=== PATIENT | male | born 1970 | race African-American/Black ===

== ENCOUNTER 2022-03-24 07:18 | Outpatient (CLI) | payer OTHER, SELFPAY ==
[2022-03-24 09:48] LABS: Albumin* 4.3 g/dL (3.3-5.0)
[2022-03-24 09:49] LABS: Chloride* 105 mmol/L (96-114); Potassium* 4.2 mmol/L (3.6-5.1); Sodium* 140 mmol/L (135-149)
[2022-03-24 09:51] LABS: Bilirubin Total* 0.9 mg/dL (0.1-1.5); Carbon Dioxide* 27 mmol/L (20-32); Cholesterol* 185 mg/dL (90-199); Creatinine* 1.2 mg/dL (0.5-1.5); Estimated Glomerular Filt Rate 73 ml/min; Total Protein* 7.6 g/dL (6.0-8.3)
[2022-03-24 09:52] LABS: Alanine Aminotransferase* 25 U/L (4-50); Alkaline Phosphatase* 82 U/L (40-150); Aspartate Amino Transferase* 27 U/L (12-35); Blood Urea Nitrogen* 13 mg/dL (7-30); Calcium* 8.9 mg/dL (8.4-10.6); Glucose* 96 mg/dL (60-115); HDL Cholesterol* 66 mg/dL (>=40); LDL Cholesterol Calculated 106 mg/dL (<100); Triglycerides* 65 mg/dL (40-149)
[2022-03-24 10:19] LABS: PSA Screen* 1.38 ng/mL (0.10-4.00)
== END 2022-03-24 07:19 | disposition home or self-care (01) ==
PROVIDERS: PCP Internal Medicine; Visit Provider Internal Medicine
DX: Z12.5 Encounter for screening for malignant neoplasm of prostate (principal); Z13.6 Encounter for screening for cardiovascular disorders
CPT/HCPCS: 80053; 80061; 84153

== ENCOUNTER 2022-05-06 06:06 | Outpatient (CLI) | payer OTHER, SELFPAY | END 2022-05-06 06:07 | disposition home or self-care (01) | PROVIDERS: PCP Internal Medicine; Visit Provider Internal Medicine | DX: Z12.11 Encounter for screening for malignant neoplasm of colon (principal); K21.9 Gastro-esophageal reflux disease without esophagitis | CPT/HCPCS: 43239; 45378; 88305; J2250; J3010 ==

== ENCOUNTER 2023-05-10 07:00 | Outpatient (CLI) | payer OTHER, SELFPAY | END 2023-05-10 07:01 | disposition home or self-care (01) | LOC: NFLDREF 12:04 | PROVIDERS: PCP Internal Medicine; Referring Provider Internal Medicine; Visit Provider Internal Medicine | DX: N40.0 Benign prostatic hyperplasia without lower urinary tract symptoms (principal); Z13.220 Encounter for screening for lipoid disorders; I10 Essential (primary) hypertension; Z12.5 Encounter for screening for malignant neoplasm of prostate | CPT/HCPCS: 80053; 80061; G0103 ==

== ENCOUNTER 2023-05-24 08:44 | Emergency (ER) | payer OTHER, SELFPAY ==
[2023-05-24 08:48] VITALS: BP 145/95; PULSE 72; RESP 16; TEMP 36.1; O2SAT 99; BMI 29.7
--- NOTE | 2023-05-24 09:12 | ED.GENADULT ---
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 He is doses blood pressures been higher. His has been sick with similar illness but he has had diarrhea the last few days, occasional chills, occasional headache and some body aches. He denies specifically any dysuria denies any chest pain or breathing difficulty no shortness of breath with exertion. He has not had any blood in his stool, it has been more watery. He has had some p.o. intake but he has been limited in that due to the the diarrhea and just not much appetite. He does take amlodipine and losartan and tamsulosin. He has had no recent travel. Related Data Home Medications Medication Instructions Recorded Confirmed tamsulosin 0.4 mg capsule 0.4 mg PO QPM 05/24/23 05/24/23 Previous Rx's Medication Instructions Recorded amlodipine 10 mg tablet 10 mg PO QDAY Hypertension #90 tabs 05/16/23 losartan 100 mg tablet 100 mg PO QDAY Hypertension #90 05/16/23 tabs Allergies Allergy/AdvReac Type Severity Reaction Status Date / Time lisinopril Allergy Intermediate swollen Verified 05/16/23 07:48 lips Review of Systems Status of ROS: Reports: 6 or more systems reviewed and unremarkable except as noted in History and below PFSH [facility] Medical History BPH (benign prostatic hyperplasia) ?N40.0 - Benign prostatic hyperplasia without lower urinary tract symptoms (ICD-10) Need for malaria prophylaxis ?Z29.8 - Encounter for other specified prophylactic measures (ICD-10) Social History What is your current living situation?: I presently have a place to live Problems where you live: no known problems In the past 12 months, utilities in danger of being shut off: no In past 12 months, lack of transportation kept you from medical appts, meetings, work, or getting things needed for daily living: no In the past 12 mos, have been you worried that your food would run out before you had money to buy more?: never true In the past 12 mos, the food you bought just didn't last and you didn't have money to buy more?: never true Smoking Status: Never smoker Do you use any of these nicotine containing products: None How often do you have a drink containing alcohol: never How often do you have six or more drinks on one occasion: Never AUDIT-C Alcohol total score: 0 Non-prescribed substance use: denies use How often does anyone, including family, friends and others, physically hurt you: never How often does anyone, including family, friends and others, insult or talk down to you: never How often does anyone, including family, friends and others, threaten you with harm: never How often does anyone, including family, friends and others, scream or curse at you: never Little interest or pleasure in doing things: not at all Feeling down, depressed, or hopeless: not at all service: No Exam Narrative: Exam Narrative: Objective: Vital signs are unremarkable and within normal limits including him being afebrile, the exception is his blood pressure is just minimally elevated 145/95. He is awake and alert no distress, no scleral icterus Throat is clear HEENT shows no facial asymmetry Neck is supple Chest is clear Heart rhythm regular heart murmur Abdomen benign soft no masses no peritonitis Extremities are no edema , neurologic nonfocal upper lower extremities Skin periphery is warm and dry Const: Vital Signs, click to edit/add: Vital Signs - 24 hr 05/24/23 08:48 Temperature 96.9 F L Pulse Rate [Pulse Oximeter] 72 Respiratory Rate 16 Blood Pressure [Ri ght Upper Arm] 145/95 H Pulse Oximetry 99 Oxygen Delivery Me thod Room Air Course Vital Signs Vital signs: Initial Vital Signs Temperature 96.9 F L 05/24/23 08:48 Temperature Source Temporal Artery Scan 05/24/23 08:48 Pulse Rate 72 05/24/23 08:48 Respiratory Rate 16 05/24/23 08:48 Blood Pressure 145/95 H 05/24/23 08:48 Blood Pressure Mean 111 H 05/24/23 08:48 Blood Pressure Position Sitting 05/24/23 08:48 Pulse Oximetry 99 05/24/23 08:48 Oxygen Delivery Method Room Air 05/24/23 08:48 Vital Signs Temperature 96.9 F L 05/24/23 08:48 Pulse Rate 72 05/24/23 08:48 Respiratory Rate 16 05/24/23 08:48 Blood Pressure 145/95 H 05/24/23 08:48 Pulse Oximetry 99 05/24/23 08:48 Oxygen Delivery Method Room Air 05/24/23 08:48 Temperature 96.9 F L 05/24/23 08:48 Pulse Rate 72 05/24/23 08:48 Respiratory Rate 16 05/24/23 08:48 Blood Pressure 145/95 H 05/24/23 08:48 Pulse Oximetry 99 05/24/23 08:48 Oxygen Delivery Method Room Air 05/24/23 08:48 Medications Administered Medications: Discontinued Medications Generic Name Dose Route Start Last Admin Trade Name Santana PRN Reason Stop Dose Admin Acetaminophen 1,000 mg 05/24/23 09:09 05/24/23 09:25 Acetaminophen 500 Mg Tablet PO 05/24/23 09:10 1,000 mg ONCE ONE Administration Sodium Chloride 1,000 mls @ 6,000 mls/hr 05/24/23 09:15 05/24/23 10:07 0.9 % Sodium Chloride 1000 Ml IV 05/24/23 09:24 Infused .Q10M PLACIDO Infusion Ibuprofen 800 mg 05/24/23 09:11 05/24/23 09:25 Ibuprofen 400 Mg Tablet PO 05/24/23 09:12 800 mg ONCE ONE Administration Medical Decision Making [facility] Narrative Medical decision making narrative: 52-year-old male with diarrhea for several days duration, is sick with similar type illness. I think at this point rule out electrolyte abnormality, rule out viral studies, labs, will get an EKG and point of care troponin for completeness. I do not suspect any cardiac issue but I would want make sure this looks normal. I think at this point rehydration is appropriate as well as some Tylenol and ibuprofen for his body aches. Disposition pending findings above. He has had no history of bleeding or clotting problems, no recent travel, does have exposure to similar illness in the household. Suspect influenza or COVID. Will also do stool culture, O&P, C diff . no recent antibiotic use Addendum 10:20 a.m. patient's EKG shows normal sinus rhythm possible mild LVH some artifact present no obvious ischemic changes, the patient troponin point of care as negative. His white blood cell count hemoglobin, electrolytes are all within normal limits. He does have minimal elevation in his AST and ALT. His CRP is just minimally elevated 1.9. Amylase is normal, viral studies are negative. I suspect he has some type of intestinal infection, similar with his at his had a vomiting and diarrhea illness that now she has improved from. I think collecting the stool samples at home would be appropriate as he has not been able to leave those here. Will give him some some Imodium now and he could use it once or twice a day for the next couple of days, eat yogurt, diet as tolerated, perhaps avoid milk products for the next couple of days. Recheck with regular doctor next 48 hours on improved, return to ED any time concerns or questions. Lab Data Labs: Lab Results 05/24/23 05/24/23 Range/Units 09:10 09:25 WBC 4.99 (4.50-11.00) K/uL RBC 5.22 (4.30-5.90) m/uL Hgb 15.2 (13.5-17.5) gm/dL Hct 46.1 (37.0-53.0) % MCV 88 (80-100) fL MCH 29 (26-34) pg MCHC 33 (32-36) gm/dL RDW Coeff of Kaur 12.0 (11.5-15.5) % Plt Count 247 (140-440) K/uL Neut % (Auto) 46.9 (42.0-72.0) % Lymph % (Auto) 37.1 (20-44) % [place] % (Auto) 13.8 H (0.0-11.0) % Eos % (Auto) 1.6 (0.0-7.0) % Baso % (Auto) 0.4 (0.0-3.0) % Neut # (Auto) 2.34 (1.7-7.0) K/uL Lymph # (Auto) 1.85 (0.90-2.90) K/uL [place] # (Auto) 0.70 (0.00-0.90) K/UL Eos # (Auto) 0.08 (0.00-0.50) K/uL Baso # (Auto) 0.02 (0.00-0.30) K/uL Abs Immat Gran (auto) 0.01 (0.00-0.30) K/uL Imm/Tot Granulo (auto) 0.2 % Sodium 138 (135-149) mmol/L Potassium 3.7 (3.6-5.1) mmol/L Chloride 106 (96-114) mmol/L Carbon Dioxide 24 (20-32) mmol/L Anion Gap 8 (7-15) mEq/L BUN 12 (7-30) mg/dL Creatinine 1.3 (0.5-1.5) mg/dL Estimated Creat Clear 72.96 Estimated GFR 66 ml/min Glucose 89 (60-115) mg/dL Lactate 1.0 (0.5-1.9) mmol/L Calcium 9.0 (8.4-10.6) mg/dL Total Bilirubin 0.6 (0.1-1.5) mg/dL Direct Bilirubin 0.2 (0.0-0.5) mg/dL AST 53 H (12-35) U/L ALT 94 H (4-50) U/L Alkaline Phosphatase 101 (40-150) U/L C-Reactive Protein 1.9 H (0.5-1.0) mg/dL NT-Pro-B Natriuret Pep < 20 pg/mL Total Protein 8.0 (6.0-8.3) g/dL Albumin 4.2 (3.3-5.0) g/dL Amylase 60 (18-89) U/L SARS-CoV-2 (PCR) Negative SARS-CoV-2 (Negative) Influenza Type A (PCR) Negative PCR FLU A (Negative) Influenza Type B (PCR) Negative PCR FLU B (Negative) RSV (PCR) Negative PCR RSV (Negative) POC Troponin I 0.01 (0.01-0.04) ng/ml Discharge Plan Discharge Clinical Impression: Diarrhea Patient Disposition: Home w/ Parent or Adult Condition: Improved Additional Instructions: Rest, light activity, home for a couple of days would be recommended, Imodium as needed once or twice a day for diarrhea. This is [id number]. Would also recommend you eat yogurt regularly, avoid milk products for a couple of days. Collect the stool samples in the containers year sent home with and you can bring those back to the hospital for analysis. Recheck with your regular doctor next 2-3 days, return to ED sooner problems concerns or worsening. Activity Level: Light activity Prescriptions: No Action amlodipine 10 mg tablet 10 mg PO QDAY Qty: 90 3RF losartan 100 mg tablet 100 mg PO QDAY Qty: 90 0RF tamsulosin 0.4 mg capsule 0.4 mg PO QPM Follow Up/Referrals: Sree Pryor MD [Primary Care Provider] - Stand Alone Forms: [employer] Info Instructions
[2023-05-24] MEDS: ACETAMINOPHEN 500 MG TABLET 1000 MG PO (09:25)
[2023-05-24] MEDS: 0.9 % SODIUM CHLORIDE 1000 ml 1,000 ML 6000 ML IV (09:25)
[2023-05-24] MEDS: IBUPROFEN 400 MG TABLET 800 MG PO (09:25)
[2023-05-24 09:34] LABS: Basophils Absolute Auto 0.02 K/uL (0.00-0.30); Basophils Percent Auto 0.4 % (0.0-3.0); Eosinophils Absolute Auto 0.08 K/uL (0.00-0.50); Eosinophils Percent Auto 1.6 % (0.0-7.0); Hematocrit 46.1 % (37.0-53.0); Hemoglobin* 15.2 gm/dL (13.5-17.5); Immature Granulocytes Abs Auto 0.01 K/uL (0.00-0.30); Immature Granulocytes Pct Auto 0.2 %; Lymphocytes Absolute Auto 1.85 K/uL (0.90-2.90); Lymphocytes Percent Auto 37.1 % (20-44); Mean Corpuscular HGB Conc 33 gm/dL (32-36); Mean Corpuscular Hemoglobin 29 pg (26-34); Mean Corpuscular Volume 88 fL (80-100); Monocytes Percent Auto 13.8 % (0.0-11.0); Neutrophils Absolute Auto 2.34 K/uL (1.7-7.0); Neutrophils Percent Auto 46.9 % (42.0-72.0); Platelet Count* 247 K/uL (140-440); Red Blood Count 5.22 m/uL (4.30-5.90); White Blood Count* 4.99 K/uL (4.50-11.00)
[2023-05-24 09:37] LABS: Slide Review Reflex No
[2023-05-24 09:53] LABS: Albumin* 4.2 g/dL (3.3-5.0); Chloride* 106 mmol/L (96-114); Potassium* 3.7 mmol/L (3.6-5.1); Sodium* 138 mmol/L (135-149)
[2023-05-24 09:55] LABS: Amylase* 60 U/L (18-89); Creatinine* 1.3 mg/dL (0.5-1.5); Est. Creatinine Clearance* 72.96; Estimated Glomerular Filt Rate 66 ml/min
[2023-05-24 09:56] LABS: Alanine Aminotransferase* 94 U/L (4-50); Alkaline Phosphatase* 101 U/L (40-150); Anion Gap 8 mEq/L (7-15); Aspartate Amino Transferase* 53 U/L (12-35); Bilirubin Direct* 0.2 mg/dL (0.0-0.5); Bilirubin Total* 0.6 mg/dL (0.1-1.5); Blood Urea Nitrogen* 12 mg/dL (7-30); Carbon Dioxide* 24 mmol/L (20-32); Glucose* 89 mg/dL (60-115)
[2023-05-24 09:59] LABS: C Reactive Protein* 1.9 mg/dL (0.5-1.0)
[2023-05-24 10:03] LABS: Troponin, Point-of-Care* 0.01 ng/ml (0.01-0.04)
[2023-05-24 10:12] LABS: NT Pro B Type NatriureticPept* < 20 pg/mL; PCR FLU A Negative PCR FLU A (Negative); PCR FLU B Negative PCR FLU B (Negative); PCR RSV Negative PCR RSV (Negative); SARS PCR* Negative SARS-CoV-2 (Negative)
[2023-05-25 08:35] LABS: C.Difficile Negative (Negative); CDIFFEPI 027 PRESUMPTIVE NEGATIVE (Negative)
[2023-05-28 15:54] LABS: Ova and Parasite, Fecal Negative (Negative)
== END 2023-05-24 10:28 | disposition home or self-care (01) ==
PROVIDERS: Emergency Provider Family Medicine; PCP Internal Medicine
DX: R19.7 Diarrhea, unspecified (principal)
CPT/HCPCS: 36415; 80048; 80076; 82150; 83605; 83880; 84484; 85025; 86140; 87045; 87046; 87077; 87177; 87209; 87427; 87493; 87631; 93005; 99283; 99284; A9270; J7030

== ENCOUNTER 2023-06-23 13:42 | Outpatient (CLI) | payer OTHER, SELFPAY ==
--- OUTSIDE RECORDS SUMMARY | 2023-06-23 13:52 | XMS_ITS | Clinical Summary ---
Author Name Unknown Organization [facility] Address [address] [facility] [place] [address] Care Team Providers Care Scene And Lighting Design Lecturer Name Role Phone Md YURIDIA Romero Primary Care Provider [phone] Source Comments You are receiving this document as you are listed as the primary care provider,follow-up provider, or the patient has been referred to you for consultation.This is in compliance with the Medicare and[facility] Incentive Program,which states Providers who transition their patient to another setting of careor provider of care or refers their patient to another provider of care shouldprovide summary care record for each transition of care or referral. [facility] Allergies Active Allergy Reactions Criticality Noted Date Comments Lisinopril-Hydrochloroth iazide Other, see comments 06/17/2016 Facial swelling Medications Medication Sig Dispensed Refills Start Date End Date Status amLODIPine (NORVASC) 10 MG tablet Take 10 mg by mouth daily. Active losartan (COZAAR) 50 MG tablet Take 50 mg by mouth daily. 11 06/04/2018 Active cyclobenzaprine (FLEXERIL) 10 MG tablet Take 1 Tablet (10 mg) by mouth three times a day as needed. 30 Tablet 08/16/2021 Active Active Problems Problem Noted Date Diagnosed Date Left lumbar radiculopathy 08/16/2021 Immunizations Name Administration Dates Next Due Flu Vac Preserv Free (3+yrs) 12/07/2012,05/15/19 13 Influenza (Flucelvax), Prese rv Free QIV 11/25/2022 Influenza IIV4 (Quadrivalent ) 0.5mL ([id number]) 12/01/2021,11/08/2018,11/21/2017, 017,12/01/2014,12/27/2013 Pfizer 12+ 11/25/2022 Pfizer Monovalent 12+ Purple Top 03/31/2020,02/20 Social History Tobacco Use Types Packs/Day Years Used Date Smoking Tobacco: Never Smokeless Tobacco: Never Alcohol Use Standard Drinks/Week Comments Not Currently 0 (1 standard drink = 0.6 oz pur e alcohol) Sex and Gender Information Value Date Recorded Sex Assigned at Not on file Gender Identity Not on file Sexual Orientation Not on file Last Filed Vital Signs Vital Sign Reading Time Taken Comments Blood Pressure 163/100 08/26/2021 3:10 PM CDT Pulse 83 08/26/2021 3:00 PM CDT Temperature 36.8 ??C (98.2 ??F) 08/26/2021 2:13 PM CD T Respiratory Rate 16 08/26/2021 3:10 PM CDT Oxygen Saturation 100% 08/26/2021 3:10 PM CDT Inhaled Oxygen Concentration - - Weight 102.5 kg (226 lb) 08/09/2021 4:41 PM CDT Height 182.9 cm (6') 08/09/2021 4:41 PM CDT Body Mass Index 30.65 08/09/2021 4:41 PM CDT Plan of Treatment Health Maintenance Due Date Last Done Comments Colon Cancer Screening Plan Due 1970 Hep C Screening (Preventive Services) 1970 PSA Screening Discussion 1970 HIV Screening (Preventive Services) 1986 Adult Preventive Visit 1988 HepB (1) 1989 Cholesterol 05/14/2017 05/14/2012 Zoster/Shingles (1 of 2) 2020 DTaP/Tdap/Td (3 - Tdap) 12/31/2030 12/31/2020, 09/15 MCV4 Aged Out 01/04/2012 No longer eligi ble based on patient's age to complete this topic HepA Aged Out 07/10/2014, 07/22, 01/04/2012 No longer eligible based on patient's age to complete this topic COVID-19 Vaccine Completed 11/25/2022, , 12/31/2020, Additional history exists Influenza Completed 11/25/2022, 11/20, 11/20/2020, Additional history exists Hib Aged Out No longer eligi ble based on patient's age to complete this topic IPV (Polio) Aged Out No longer eligi ble based on patient's age to complete this topic Pneumococcal Aged Out No longer eligi ble based on patient's age to complete this topic Procedures Procedure Name Priority Date/Time Associated Diagnosis Comments CHOLESTEROL, TOTAL AND HDL Routine 05/14/2012 2:08 PM CDT Screening for lipoid disorders from Last 3 Months or Most Recently Relevant to Health Maintenance Results * Cholesterol, Total and HDL (05/14/2012 2:08 PM CDT) Cholesterol 187 0 - 200 mg/dL HP CONVERSION HDL Cholesterol 46 >39 mg/dL HP CONVERSION Cholesterol/HDL Ratio Screen 4.1 HP CONVERSION 05/14/2012 2:08 PM CDT 05/14/2012 2:28 PM CDT Pepe Lamb MD LAB_1 HP CONVERSION from Last 3 Months or Most Recently Relevant to Health Maintenance Care Teams Scene And Lighting Design Lecturer Relationship Specialty Start Date End Date [address], , [place] [address] PCP - General 06/27/12
== END 2023-06-23 13:43 | disposition home or self-care (01) ==
LOC: LKVREF 13:44
PROVIDERS: PCP Internal Medicine; Visit Provider Family Medicine
DX: Z13.29 Encounter for screening for other suspected endocrine disorder (principal)
CPT/HCPCS: 84443

== ENCOUNTER 2023-07-11 13:32 | Outpatient (CLI) | payer OTHER, SELFPAY ==
--- OUTSIDE RECORDS SUMMARY | 2023-07-11 13:34 | XMS_ITS | Clinical Summary ---
Author Name Unknown Organization [facility] Address [address] [place] [address] Care Team Providers Care Power House Engineer Name Role Phone Md YURIDIA Romero Primary Care Provider [phone] Source Comments You are receiving this document as you are listed as the primary care provider,follow-up provider, or the patient has been referred to you for consultation.This is in compliance with the Medicare and[facility] E[facility] Incentive Program,which states Providers who transition their patient to another setting of careor provider of care or refers their patient to another provider of care shouldprovide summary care record for each transition of care or referral. [facility] Allergies Active Allergy Reactions Criticality Noted Date [...] QIV 11/25/2022 Influenza IIV4 (Quadrivalent ) 0.5mL ([id number]) 12/01/2021,11/08/2018,11/21/2017, 017,12/01/2014,12/27/2013 Pfizer 12+ 11/25/2022 Pfizer Monovalent [...] Recently Relevant to Health Maintenance Care Teams Power House Engineer Relationship Specialty Start Date End Date [address], , [place] [address] PCP - General 06/27/12
[2023-07-11 14:46] VITALS: BP 142/82; PULSE 95; RESP 16
--- NOTE | 2023-07-11 14:48 | W.PM.STED ---
Stress Test Note Date Date of test: 07/11/23 Providers Primary care provider: Sree Pryor Stress test physician: Eddie Boone Stress Test Note Stress test ordered: Stress Echo Indication for test: Hypertension, shortness of breath Results discussion: This very pleasant gentleman presents here for the above test after discussio n the risks benefits and side effects he would like to proceed. Cardiac stress test medical history form is reviewed. Pretest EKG shows normal sinus rhythm. Ventricular rate 66, blood pressure 138 on 91. There is some EKG abnormalities, of ST wave abnormalities. Standard Toy protocol is done over a 12 minute. . He achieved a metabolic equivalent of 12.3 Mets. Maximum heart rate was 159, shows 111% of the maximum. He did not develop any chest pain any shortness of breath, or any other anginal equivalent symptoms. Mild ST wave abnormalities, persisted from initial. Impression: Negative electrographic tracing of stress echo, conditioning was felt to be good Follow up suggested: Await echo images, clinical correlation with these will be needed. Patient left this testing facility in excellent condition back to baseline
== END 2023-07-11 13:33 | disposition home or self-care (01) ==
LOC: STRESS 13:32
PROVIDERS: PCP Internal Medicine; Visit Provider Family Medicine
DX: I10 Essential (primary) hypertension (principal); R06.02 Shortness of breath; I51.7 Cardiomegaly
CPT/HCPCS: 93016; 93325; 93351

== ENCOUNTER 2024-05-01 10:03 | Outpatient (CLI) | payer OTHER, SELFPAY | END 2024-05-01 10:04 | disposition home or self-care (01) | PROVIDERS: PCP Internal Medicine; Visit Provider Family Medicine | DX: I10 Essential (primary) hypertension (principal); R74.8 Abnormal levels of other serum enzymes; Z12.5 Encounter for screening for malignant neoplasm of prostate | CPT/HCPCS: 80053; G0103 ==